=== PATIENT | female | born 1990 | race Caucasian/White ===

== ENCOUNTER 2017-04-14 00:18 | Emergency (ER) | payer BC ==
[2017-04-14 00:56] VITALS: BP 131/77
--- NOTE | 2017-04-14 00:58 | ED Physician Documentation ---
Abscess - HISTORIAN Historian: patient, spouse - HPI Stated Complaint: Spider bite Chief Complaint: General Adult Additional Information: pt thinks spider bite rt lat hip [id number] ago sig enlarged to approx 3 inches. min pain w pressure no sig pain w/palpation-no central fluctuant area Timing: worse Duration: persistent since Quality: itchy (slight), painful, burning Context: Medication Exposure: none Context: Food Exposure: none (pt is breast feeding---did not see any spider but moved in furniture from garage) - ROS CONST: none CVS/RESP: none EYES/ENT: none GI/: none - PAST HX Past History: none Surgeries/Procedures: No Allergies/Adverse Reactions: Allergies Allergy/AdvReac Type Severity Reaction Status Date / Time amoxicillin Allergy Unknown Verified 04/14/17 00:25 erythromycin base Allergy Unknown Verified 04/14/17 00:25 - SOCIAL HX Smoking History: non-smoker Alcohol Use: none Drug Use: none - FAMILY HX Family History: none - VITAL SIGNS Vital Signs: Vital Signs Temp Pulse Resp BP Pulse Ox 87 16 131/77 98 04/14/17 00:20 04/14/17 00:20 04/14/17 00:20 04/14/17 00:20 - REVIEWED ASSESSMENTS Nursing Assessment Reviewed: Yes Vitals Reviewed: Yes Abscess Physical Exam - EXAM General Appearance: mild distress Skin: warm,dry. No: cyanotic, diaphoretic, pallid, abscess, tender indurated area, pointing fluctuant with erythema Location: other (rt lat hip) Character: symmetric, macular, papular Symptoms: warmth, tenderness (min) Extremities: non-tender, nml ROM EENT: eyes nml inspection Neck: trachea midline, no swelling Respiratory: no resp distress, chest non-tender CVS: reg. rate & rhythm, heart sounds nml Abdomen: non-tender, no distention Neuro/Psych: oriented x3, CN's nml as tested, motor nml, sensation nml, mood/ affect nml Discharge Clincal Impression: spider bite Referrals: Clare Welch MD [Primary Care Provider] - 2 Days Condition: Good Disposition: 01 HOME, SELF-CARE Decision to Admit: NO Decision Time: 00:58
== END 2017-04-14 00:58 | disposition home or self-care (01) ==
LOC: ED 00:18
DX: T63.301A Toxic effect of unspecified spider venom, accidental (unintentional), initial encounter (principal); X58.XXXA Exposure to other specified factors, initial encounter; Y93.9 Activity, unspecified; Y99.9 Unspecified external cause status
CPT/HCPCS: 99283; 99284